=== PATIENT | male | born 1940 | race Caucasian/White ===

== ENCOUNTER → 2017-05-22 10:05 | Outpatient (CLI) | payer MEDICARE, BC, SELFPAY ==
[2017-05-22 12:41] LABS: Absolute Lymphocyte Count 1.85 X10^3/ul (0.83-4.51); Absolute Neutrophil Count 4.3 X10^3/uL (2.0-7.7); Basophil# 0.02 X10^3/uL; Basophil% 0.3 % (0-1); Eosinophil# 0.21 X10^3/uL; Hematocrit 43.4 % (40-54); Hemoglobin 14.6 g/dl (13.0-16.5); Lymphocyte # 1.85 X10^3/ul (4.0); Lymphocyte % 26.8 % (19-41); Mean Corp Hgb Conc 33.6 g/gl (32-36); Mean Corpuscular Hgb 31.5 pg (27.0-32.0); Mean Corpuscular Volume 93.7 fL (80-94); Mean Platelet Vol. 9.3 fl (6.2-12.0); Monocyte# 0.51 X10^3/uL; Monocyte% 7.4 % (0-10); Neutrophil % 62.4 % (47-70); Platelet Count 301 K/mm3 (150-450); RBC Distribution Width CV 12.3 % (11.6-14.6); RBC Distribution Width SD 41.4 fl (35.1-43.9); Red Blood Count 4.63 M/mm3 (4.6-6.2); White Blood Count 6.9 K/mm3 (4.4-11.0)
[2017-05-22 12:59] LABS: POSITIVE DIFFERENTIAL NO
[2017-05-22 13:00] LABS: POSITIVE COUNT NO; POSITIVE MORPHOLOGY NO
[2017-05-22 13:04] LABS: BUN 17 mg/dL (7-18); Creatinine, Serum 1.23 mg/dL (0.70-1.30); Glucose 94 mg/dL (74-106)
[2017-05-22 13:05] LABS: ALB/GLOB Ratio 1.1 RATIO (0.9-2.4); AST(SGOT) 17 U/L (15-37); Alanine Aminotransfer ALT/SGPT 25 U/L (16-61); Albumin, Serum 3.8 g/dL (3.2-5.0); Alkaline Phosphatase 95 U/L (45-117); Anion Gap 7 (5-15); BUN/Creat Ratio 13.8 RATIO (10-20); Chloride 105 mmol/L (98-107); EST Glomerular Filtration Rate 61 mL/min (>60); Est Glom Filt Rate - Afr Amer 73 mL/min (>60); Globulin 3.4 g/dL (2.2-4.2); Potassium 4.2 mmol/L (3.5-5.1); Protein, Total 7.2 g/dL (6.4-8.2); Sodium Level 142 mmol/L (136-145); Thyroid Stim Hormone (TSH) 1.87 uIU/mL (0.358-3.74)
[2017-05-22 13:09] LABS: Vitamin D,25 Hydroxy 17.3 ng/mL (29.95-100.01)
== END ==
PROVIDERS: Family Provider Family Medicine Geriatric Medicine; PCP Family Medicine Geriatric Medicine; Visit Provider Family Medicine Geriatric Medicine
DX: E55.9 Vitamin D deficiency, unspecified (principal); I10 Essential (primary) hypertension
CPT/HCPCS: 36415; 80053; 82306; 84443; 85025

== ENCOUNTER → 2017-10-07 11:15 | Outpatient (CLI) | payer MEDICARE, BC, SELFPAY ==
[2017-10-07 12:52] LABS: Absolute Lymphocyte Count 2.01 X10^3/ul (0.83-4.51); Basophil# 0.02 X10^3/uL; Basophil% 0.3 % (0-1); Eosinophil# 0.15 X10^3/uL; Eosinophils% 1.9 % (0-5); Hematocrit 44.3 % (40-54); Hemoglobin 14.7 g/dl (13.0-16.5); Lymphocyte # 2.01 X10^3/ul (4.0); Lymphocyte % 25.5 % (19-41); Mean Corp Hgb Conc 33.2 g/gl (32-36); Mean Corpuscular Hgb 31.2 pg (27.0-32.0); Mean Corpuscular Volume 94.1 fL (80-94); Mean Platelet Vol. 9.2 fl (6.2-12.0); Monocyte# 0.66 X10^3/uL; Monocyte% 8.4 % (0-10); Neutrophil # 5.03 X10^3/uL (2.7-7.7); Neutrophil % 63.8 % (47-70); Platelet Count 289 K/mm3 (150-450); RBC Distribution Width CV 12.3 % (11.6-14.6); RBC Distribution Width SD 41.8 fl (35.1-43.9); Red Blood Count 4.71 M/mm3 (4.6-6.2); White Blood Count 7.9 K/mm3 (4.4-11.0)
[2017-10-07 12:53] LABS: POSITIVE COUNT NO; POSITIVE DIFFERENTIAL NO; POSITIVE MORPHOLOGY NO
[2017-10-07 13:09] LABS: ALB/GLOB Ratio 1.2 RATIO (0.9-2.4); AST(SGOT) 20 U/L (15-37); Alanine Aminotransfer ALT/SGPT 27 U/L (16-61); Albumin, Serum 3.9 g/dL (3.2-5.0); Alkaline Phosphatase 80 U/L (45-117); Anion Gap 5 (5-15); BUN 20 mg/dL (7-18); BUN/Creat Ratio 14.8 RATIO (10-20); Calcium,Total 9.2 mg/dL (8.5-10.1); Chloride 108 mmol/L (98-107); Creatinine, Serum 1.35 mg/dL (0.70-1.30); EST Glomerular Filtration Rate 54 mL/min (>60); Est Glom Filt Rate - Afr Amer 66 mL/min (>60); Globulin 3.2 g/dL (2.2-4.2); Glucose 92 mg/dL (74-106); Potassium 4.2 mmol/L (3.5-5.1); Protein, Total 7.1 g/dL (6.4-8.2); Sodium Level 142 mmol/L (136-145); Thyroid Stim Hormone (TSH) 1.83 uIU/mL (0.358-3.74)
== END ==
PROVIDERS: Family Provider Family Medicine Geriatric Medicine; PCP Family Medicine Geriatric Medicine; Visit Provider Family Medicine Geriatric Medicine
DX: I10 Essential (primary) hypertension (principal)
CPT/HCPCS: 36415; 80053; 84443; 85025

== ENCOUNTER → 2017-11-28 13:13 | Outpatient (CLI) | payer MEDICARE, BC, SELFPAY ==
--- NOTE | 2017-11-27 | LES_PTH ---
PATIENT: RBIONNA IBARRA LOC: [facility] U#:[id number] AGE/SX: 84/M ROOM: RE11/28/[address]: Dr. Edwardo Sow MD : 1940 BED: DIS: SPEC #: [id number] RECD: 11/28/17 14:38 STATUS: DAX AMBER #: [id number] EDE: 11/27/17 00:[address]: Edwardo Sow DEPT: SURGICAL PATHOLOGY RECD BY: Roman Loya ENTERED: 11/28/17 14:39 SP TYPE: Lesion OTHR DR: Dr. Wiliam Guerrero MD Tissues: Scapula, NOS Procedures: Surgery Specimen Level IV HEADER OPERATION: Excision skin lesion left scapula PRE-OP DIAGNOSIS: Uncertain neoplasm trunk TISSUE SUBMITTED: Left scapular tissue, transverse ellipse, suture at lateral aspect of ellipse MICROSCOPIC DIAGNOSIS Left scapular lesion, excisional biopsy: Basal cell carcinoma, completely excised. SJ:luiz 11/29/17 MICROSCOPIC DESCRIPTION Slides are reviewed. GROSS DESCRIPTION Received in fixative is one container labeled with the patient's name and designated left scapula excisional biopsy. The specimen consists of a faye-white skin ellipse measuring 3.5 x 1.5 cm and up to 1 cm in thickness. The specimen is oriented by a suture at lateral aspect of the ellipse. The specimen is inked as follows: lateral tip ? yellow, medial tip ? green. The lateral tip is assigned as 3 o?clock position, the peripheral margin 12 o?clock edge is inked black and opposite lateral margin occupying 6 o?clock inked blue. The specimen is serially sectioned and submitted entirely in three cassettes as follows: 1 ? lateral and medial tip, 2 ? medial half of the specimen, 3 ? lateral half of the specimen. / SALMA:luiz 11/28/17 TC:0 CPT: 17667
== END ==
PROVIDERS: Family Provider Family Medicine Geriatric Medicine; PCP Family Medicine Geriatric Medicine; Visit Provider Surgery
DX: D48.7 Neoplasm of uncertain behavior of other specified sites (principal)
CPT/HCPCS: 88305

== ENCOUNTER → 2018-01-07 14:56 | Outpatient (CLI) | payer MEDICARE, BC, SELFPAY ==
[2018-01-07 17:19] LABS: Absolute Lymphocyte Count 1.94 X10^3/ul (0.83-4.51); Absolute Neutrophil Count 4.2 X10^3/uL (2.0-7.7); Basophil# 0.03 X10^3/uL; Basophil% 0.4 % (0-1); Eosinophil# 0.16 X10^3/uL; Eosinophils% 2.3 % (0-5); Hematocrit 44.3 % (40-54); Hemoglobin 14.9 g/dl (13.0-16.5); Lymphocyte # 1.94 X10^3/ul (4.0); Lymphocyte % 28.4 % (19-41); Mean Corp Hgb Conc 33.6 g/gl (32-36); Mean Corpuscular Hgb 31.4 pg (27.0-32.0); Mean Corpuscular Volume 93.3 fL (80-94); Mean Platelet Vol. 9.6 fl (6.2-12.0); Monocyte# 0.47 X10^3/uL; Monocyte% 6.9 % (0-10); Neutrophil # 4.22 X10^3/uL (2.7-7.7); Platelet Count 295 K/mm3 (150-450); RBC Distribution Width CV 12.4 % (11.6-14.6); RBC Distribution Width SD 41.5 fl (35.1-43.9); Red Blood Count 4.75 M/mm3 (4.6-6.2); White Blood Count 6.8 K/mm3 (4.4-11.0)
[2018-01-07 17:30] LABS: POSITIVE COUNT NO; POSITIVE DIFFERENTIAL NO; POSITIVE MORPHOLOGY NO; Vitamin B12 358 pg/mL (211-911)
[2018-01-07 17:37] LABS: Anion Gap 8 (5-15); BUN 17 mg/dL (7-18); BUN/Creat Ratio 14.5 RATIO (10-20); Calcium,Total 9.3 mg/dL (8.5-10.1); Chloride 109 mmol/L (98-107); Creatinine, Serum 1.17 mg/dL (0.70-1.30); EST Glomerular Filtration Rate 64 mL/min (>60); Est Glom Filt Rate - Afr Amer 78 mL/min (>60); Glucose 93 mg/dL (74-106); Potassium 4.5 mmol/L (3.5-5.1); Sodium Level 143 mmol/L (136-145)
[2018-01-10 04:13] LABS: Rapid Plasmin Reagin (RPR) NONREACTIVE (NONREACTIVE)
== END ==
PROVIDERS: Family Provider Family Medicine Geriatric Medicine; PCP Family Medicine Geriatric Medicine; Visit Provider Family Medicine Geriatric Medicine
DX: F06.8 Other specified mental disorders due to known physiological condition (principal); G30.9 Alzheimer's disease, unspecified; R53.83 Other fatigue
CPT/HCPCS: 36415; 80048; 82607; 82746; 84443; 85025; 86592

== ENCOUNTER → 2018-05-26 09:33 | Outpatient (CLI) | payer MEDICARE, BC, SELFPAY ==
[2018-05-26 12:53] LABS: Absolute Lymphocyte Count 1.77 X10^3/ul (0.83-4.51); Absolute Neutrophil Count 4.4 X10^3/uL (2.0-7.7); Basophil# 0.02 X10^3/uL; Basophil% 0.3 % (0-1); Eosinophil# 0.27 X10^3/uL; Eosinophils% 3.8 % (0-5); Hematocrit 44.9 % (40-54); Hemoglobin 14.3 g/dl (13.0-16.5); Lymphocyte # 1.77 X10^3/ul (4.0); Lymphocyte % 24.9 % (19-41); Mean Corp Hgb Conc 31.8 g/gl (32-36); Mean Corpuscular Hgb 30.8 pg (27.0-32.0); Mean Corpuscular Volume 96.8 fL (80-94); Mean Platelet Vol. 9.2 fl (6.2-12.0); Monocyte# 0.65 X10^3/uL; Monocyte% 9.1 % (0-10); Neutrophil # 4.39 X10^3/uL (2.7-7.7); Neutrophil % 61.8 % (47-70); Platelet Count 290 K/mm3 (150-450); RBC Distribution Width CV 12.8 % (11.6-14.6); RBC Distribution Width SD 44.5 fl (35.1-43.9); Red Blood Count 4.64 M/mm3 (4.6-6.2); White Blood Count 7.1 K/mm3 (4.4-11.0)
[2018-05-26 12:54] LABS: POSITIVE COUNT NO; POSITIVE DIFFERENTIAL NO; POSITIVE MORPHOLOGY NO
[2018-05-26 13:10] LABS: Vitamin D,25 Hydroxy 14.9 ng/mL (29.95-100.01)
[2018-05-26 13:20] LABS: ALB/GLOB Ratio 1.2 RATIO (0.9-2.4); AST(SGOT) 16 U/L (15-37); Alanine Aminotransfer ALT/SGPT 24 U/L (16-61); Albumin, Serum 3.8 g/dL (3.2-5.0); Alkaline Phosphatase 85 U/L (45-117); Anion Gap 9 (5-15); BUN 23 mg/dL (7-18); BUN/Creat Ratio 16.5 RATIO (10-20); Calcium,Total 8.7 mg/dL (8.5-10.1); Chloride 105 mmol/L (98-107); Creatinine, Serum 1.39 mg/dL (0.70-1.30); EST Glomerular Filtration Rate 52 mL/min (>60); Est Glom Filt Rate - Afr Amer 63 mL/min (>60); Globulin 3.1 g/dL (2.2-4.2); Glucose 87 mg/dL (74-106); Potassium 4.2 mmol/L (3.5-5.1); Protein, Total 6.9 g/dL (6.4-8.2); Sodium Level 142 mmol/L (136-145); Thyroid Stim Hormone (TSH) 1.95 uIU/mL (0.358-3.74)
== END ==
PROVIDERS: Family Provider Family Medicine Geriatric Medicine; PCP Family Medicine Geriatric Medicine; Visit Provider Family Medicine Geriatric Medicine
DX: E55.9 Vitamin D deficiency, unspecified (principal); I10 Essential (primary) hypertension
CPT/HCPCS: 36415; 80053; 82306; 84443; 85025

== ENCOUNTER 2018-07-09 05:53 | Day surgery (SDC) | payer MEDICARE, BC, SELFPAY ==
--- NOTE | 2018-06-12 09:55 | HP_ITS ---
Intake Intake Visit Reasons: Suspicious spot on back Chief Complaint: skin lesion nose and back Hay Sorter Required: No Is patient in pain?: No Allergies No Known Allergies Allergy (Verified 06/12/18 08:49) Medications Aspirin [Aspirin, Baby] 81 mg PO DAILY@0800 06/27/14 [History Confirmed 12/05/17] Atorvastatin Calcium [Lipitor] 10 mg PO DAILY 06/27/14 [History Confirmed 12/05/17] Tamsulosin HCl [Flomax] 0.4 mg PO BID 06/27/14 [History Confirmed 12/05/17] Dutasteride [Avodart] 0.5 mg PO DAILY 01/19/15 [History Confirmed 12/05/17] diltiazem CD 120 mg capsule,extended release 24 hr 120 mg PO QDAY #90 cap 03/06/18 [Rx] PFSH Medical History HLD (hyperlipidemia) (Chronic) Ventricular premature depolarization (Chronic) Sleep apnea (Chronic) Bradycardia (Chronic) Paroxysmal atrial fibrillation (Chronic) Atherosclerosis of aorta (Chronic) Paroxysmal atrial tachycardia (Chronic) Skin lesion of face (Chronic) Overactive bladder (Chronic) Pre-syncope (Chronic) HTN (hypertension) (Chronic) Afib (Chronic) Basal cell carcinoma of scapular region (Acute) BPH (benign prostatic hyperplasia) (Chronic) Erectile dysfunction (Chronic) PVC's (premature ventricular contractions) (Chronic) Paroxysmal ventricular tachycardia (Chronic) Skin cancer, basal cell (Chronic) Syncope and collapse (Chronic) Surgical History History of hemorrhoidectomy (Chronic) History of tonsillectomy (Chronic) Family History Father AAA (abdominal aortic aneurysm) BPH (benign prostatic hyperplasia) Social History Smoking Status: Former smoker alcohol intake: never substance use type: does not use Exam HENMT Other: Patient has very deep creases the nasolabial fold. Left nasal ala there is a 9 mm long deep ulcerated lesion. Chest Other: Low mid back there is a slightly irregular irritated 8 mm diameter light brown faye keratotic lesion Assessment & Plan Problems 1. Skin lesion of face L98.9 Plan 77-year-old gentleman. Findings would be very much consistent with an ulcerative basal cell skin cancer of the left nasal ala. He has a very deep nasolabial fold. I believe that a flap rotation would alter that significantly and be more cosmetically noticeable. I therefore proposed for him a wide excision of the lesion with anticipated full-thickness skin grafting harvesting from his left post auricular area and I have described the technique, benefit, risks, alternatives. No guarantees of success have been offered. The patient is not interested in having Mohs or other surgery performed if possible. Regarding the low back lesion I propose that this is like an irritated seborrheic keratosis. Amputation cautery ablation would relieve those symptoms. I anticipate being able to perform the above procedure under local anesthetic. I will utilize an operating room to help facilitate. He has had an opportunity to ask and have questions answered. We will schedule and proceed at his discretion. We will have him hold his aspirin therapy. CC: Dr. Cesar Sow M.D., F.A.C.S. Coding Level of Care Code Off vis,est,level 2 Diagnoses Skin lesion of face L98.9
[2018-07-09 06:13] VITALS: BP 142/67; PULSE 56; RESP 17; TEMP 36.6; O2SAT 95; BMI 29.9
--- NOTE | 2018-07-09 06:59 | DCINST_ITS ---
Discharge Diet: Light diet - advance as tolerated - if you have questions about your diet instructions, please talk to you doctor. Discharge Activity: May Not Drive - for 1 week or while taking narcotic pain medicine. May shower in (days): 7 Lifting Restrictions: 10 pounds Call your doctor if your incision/area has: Continuous Slow Oozing, Sudden Increased Bleeding, Increased Pain/ Swelling, Increased Redness, Foul Smelling Discharge Call your doctor if you observe: Fever of 101 or Higher Suture Line Care: Avoid Pulling/Pushing, Avoid Pinching/Bending Additional Dressing/Incision Instructions:: You may remove the neck dressing in 3 days. You may cleanse that site with a Q-tip and peroxide. You may reapply a Band-Aid or gauze dressing as needed. The nasal dressing will remain intact until your office follow-up Additional Instructions: Please call to make an office appointment for July 15 Allergies/Adverse Reactions: Allergies No Known Allergies Allergy (Verified 06/12/18 08:49) Medications to take at Discharge Aspirin [Aspirin, Baby] 81 mg PO DAILY@0800 06/27/14 Atorvastatin Calcium [Lipitor] 10 mg PO DAILY 06/27/14 Tamsulosin HCl [Flomax] 0.4 mg PO BID 06/27/14 Dutasteride [Avodart] 0.5 mg PO DAILY 01/19/15 diltiazem CD 120 mg capsule,extended release 24 hr 120 mg PO QDAY #90 cap 03/06/18 Finasteride 5 mg PO DAILY 07/09/18 Memantine HCl 5 mg PO DAILY 07/09/18 Paroxetine HCl [Paxil] 10 mg PO DAILY 07/09/18 Rivastigmine 4.6 mg Patch [Exelon Patch 4.6mg] 1 each TRANSDERM. Q24H 07/09/18 Primary Care Physician: Wiliam Guerrero Chi, MD [Primary Care Provider] - Test Results: Test results from this visit will be discussed in further detail at your follow- up appointment, if applicable. Please Follow Up With: Edwardo Sow MD - [phone] When: Call to make an appointment to be seen in about 6 days.
--- NOTE | 2018-07-09 07:15 | LES_PTH ---
PATIENT: BRIONNA IBARRA [place] [facility] [id number] AGE/SX: 77/M ROOM: RE07/09/[address]: Dr. Edwardo Sow MD : 1940 BED: DIS: 07/09/2018 SPEC #: [id number] RECD: 07/09/18 11:10 STATUS: DAX AMBER #: [id number] EDE: 07/09/18 07:[address]: Edwardo Sow DEPT: SURGICAL PATHOLOGY RECD BY: Kelton Xiao ENTERED: 07/09/18 13:28 SP TYPE: Lesion OTHR DR: Dr. Wiliam Guerrero MD Tissues: Skin of face, NOS Procedures: Surgery Specimen Level IV HEADER OPERATION: Wide excision left nasal skin lesion with full thickness PRE-OP DIAGNOSIS: Skin lesion nose and low mid back TISSUE SUBMITTED: Left nasal ala skin lesion - suture medial MICROSCOPIC DIAGNOSIS Skin lesion of left nasal region, biopsy: Basal cell carcinoma, superficial, multifocal, completely excised. Solar elastosis. SALMA:luiz 07/10/18 COMMENT The lesion measures 6.8 mm in greatest dimension. Reference is made to the patient's previous nasal tip shave biopsy from 06/08/03 ([id number]) in which basal cell carcinoma was identified. Case has been reviewed in consultation with Dr. Pearl who concurs with the above diagnosis. IDC:SJ MICROSCOPIC DESCRIPTION Slides are reviewed. GROSS DESCRIPTION Received in fixative is one container labeled with the patient's name and designated left nasal ala skin lesion, suture medial. The specimen consists of a piece of faye-white skin ellipse measuring 1.2 x 1.5 x 0.3 cm. A suture is noted identifying the medial position. The specimen is inked as follows: superior margin - black, inferior margin - blue, lateral margin - green and medial margin - yellow. The specimen is serially sectioned and submitted entirely in two cassettes as follows: 1 - superior and medial margins, 2 - rest of the specimen. / SALMA:luiz 07/09/18 TC:0 CPT: 22645
[2018-07-09] MEDS: Bupivacaine Mpf 0.5% 30 ML VIAL (07:30)
[2018-07-09] MEDS: Mupirocin Ointment 22gm Tube 1 APPLIC (08:47)
--- NOTE | 2018-07-09 08:47 | OP.PCM_ITS ---
Problem List (1) Skin lesion Status: Acute Report of Operation Date of Procedure: 07/09/18 Pre-Operative Diagnosis: Suspected basal cell carcinoma left nasa ala. 8 mm irritated keratosis low mid back Post-Operative Diagnosis: Same Surgery/Procedure Performed:: Wide excision left nasal skin cancer with full- thickness skin grafting donor site left superior lateral neck. Ablation irritated keratosis low mid back Description of Surgical Findings:: Timeout and informed consent was obtained. 77-year-old gent was taken the operating room. His face and neck was sterilely prepped and draped. 1% lidocaine mixed 50-50 with 0.5% Marcaine was used as a local anesthetic. A 29 cc was used. Local was instilled at the nasal lesion. Preoperatively that lesion measured at least 8 mm in length. I did a 15 by approximately 9 mm elliptical excision around the area. I felt that I had good clearance. Sharp dissection carried right down to the nasal cartilage. Deep hemostasis was obtained with several stitches of interrupted 5-0 chromic. Sterile gauze was applied. The graft was then carefully protected with saline gauze. I then instilled local in the left mid lateral neck and did a elliptical excision of a 2.2 x 1.1 cm ellipse of skin. That was repaired with a subdermal layer of multiple interrupted 4-0 Monocryl. And then a running simple and mattress suture of 5-0 nylon. Telfa OpSite dressing was applied. The full-thickness graft and was then aggressively defatted. It was shaped to form. It was then sutured in place at the nose with multiple interrupted 6-0 nylon sutures. I then put 4 corner sutures of 3-0 silk. Placed Adaptic and a moistened cotton ball and secured that with the bolster sutures. The specimen had a suture placed in the medial aspect of the resection and was submitted in formalin. The back wound was approximately an 8 mm diameter irritated keratosis. It was prepped with Betadine local was instilled and then electrocautery was used to ablate that lesion. There was no specimen. Topical antibiotic ointment Telfa OpSite dressing was applied to the low back. Counts were correct. The patient had the procedure well. He was taken back to his room in satisfactory condition without apparent complication. Specimens include the left nasal skin lesion suspected basal cell cancer. Drains none. Blood loss minimal. Edwardo Sow M.D., F.A.C.S.
[2018-07-09 09:22] VITALS: BP 142/67; BP 146/60; PULSE 57; RESP 57; TEMP 37.1; O2SAT 95
== END 2018-07-09 09:24 | disposition home or self-care (01) ==
LOC: SDC 05:54 → AC 05:55
PROVIDERS: Family Provider Family Medicine Geriatric Medicine; PCP Family Medicine Geriatric Medicine; Referring Provider Surgery; Visit Provider Surgery
PROC: (CPT 11644; principal; 2018-07-09 07:00)
DX: C44.311 Basal cell carcinoma of skin of nose (principal); L57.0 Actinic keratosis; E78.5 Hyperlipidemia, unspecified; I48.0 Paroxysmal atrial fibrillation; I10 Essential (primary) hypertension; N40.0 Benign prostatic hyperplasia without lower urinary tract symptoms; Z87.891 Personal history of nicotine dependence; Z79.82 Long term (current) use of aspirin; Z79.899 Other long term (current) drug therapy
CPT/HCPCS: 11644; 15760; 17000; 88305

== ENCOUNTER → 2018-10-08 11:03 | Outpatient (CLI) | payer MEDICARE, BC, SELFPAY ==
[2018-08-07 08:38] VITALS: BMI 30.7
[2018-10-08 15:35] LABS: Absolute Lymphocyte Count 1.87 X10^3/uL (0.83-4.51); Absolute Neutrophil Count 4.4 X10^3/uL (2.0-7.7); Basophil# 0.05 X10^3/uL; Basophil% 0.7 % (0-1); Eosinophil# 0.16 X10^3/uL; Eosinophils% 2.3 % (0-5); Hematocrit 42.1 % (40-54); Hemoglobin 13.9 g/dL (13.0-16.5); Lymphocyte # 1.87 X10^3/ul (4.0); Lymphocyte % 26.9 % (19-41); Mean Corpuscular Hgb 31.4 pg (27.0-32.0); Mean Corpuscular Volume 95.2 fL (80-94); Monocyte# 0.48 X10^3/uL; Monocyte% 6.9 % (0-10); NRBC Flagged by Analyzer 0 % (0-5); Neutrophil # 4.37 X10^3/uL (2.7-7.7); Neutrophil % 62.9 % (47-70); Platelet Count 262 K/mm3 (150-450); RBC Distribution Width CV 12.1 % (11.6-14.6); RBC Distribution Width SD 42.4 fl (35.1-43.9); Red Blood Count 4.42 M/mm3 (4.6-6.2)
[2018-10-08 15:51] LABS: ALB/GLOB Ratio 1.3 RATIO (0.9-2.4); AST(SGOT) 13 U/L (15-37); Alanine Aminotransfer ALT/SGPT 21 U/L (16-61); Albumin, Serum 3.7 g/dL (3.2-5.0); Alkaline Phosphatase 76 U/L (45-117); Anion Gap 8 (5-15); BUN 16 mg/dL (7-18); BUN/Creat Ratio 11.9 RATIO (10-20); Calcium,Total 8.9 mg/dL (8.5-10.1); Chloride 106 mmol/L (98-107); Creatinine, Serum 1.35 mg/dL (0.70-1.30); EST Glomerular Filtration Rate 54 mL/min (>60); Est Glom Filt Rate - Afr Amer 66 mL/min (>60); Globulin 2.8 g/dL (2.2-4.2); Glucose 88 mg/dL (74-106); Potassium 4.8 mmol/L (3.5-5.1); Protein, Total 6.5 g/dL (6.4-8.2); Sodium Level 144 mmol/L (136-145); Thyroid Stim Hormone (TSH) 1.77 uIU/mL (0.358-3.74); Vitamin D,25 Hydroxy 27.8 ng/mL (29.95-100.01)
== END ==
PROVIDERS: Family Provider Family Medicine Geriatric Medicine; PCP Family Medicine Geriatric Medicine; Visit Provider Family Medicine Geriatric Medicine
DX: E55.9 Vitamin D deficiency, unspecified (principal); I10 Essential (primary) hypertension
CPT/HCPCS: 36415; 80053; 82306; 84443; 85025

== ENCOUNTER → 2019-01-06 11:46 | Outpatient (CLI) | payer MEDICARE, BC, SELFPAY ==
[2018-08-07 08:38] VITALS: BMI 30.7
[2019-01-06 12:55] LABS: Absolute Lymphocyte Count 1.83 X10^3/uL (0.83-4.51); Basophil# 0.04 X10^3/uL; Basophil% 0.6 % (0-1); Eosinophil# 0.17 X10^3/uL; Eosinophils% 2.6 % (0-5); Hemoglobin 14.1 g/dL (13.0-16.5); Lymphocyte # 1.83 X10^3/ul (4.0); Lymphocyte % 27.9 % (19-41); Mean Corpuscular Hgb 30.9 pg (27.0-32.0); Mean Corpuscular Volume 96.5 fL (80-94); Mean Platelet Vol. 9.3 fl (6.2-12.0); Monocyte# 0.53 X10^3/uL; Monocyte% 8.1 % (0-10); NRBC Flagged by Analyzer 0 % (0-5); Neutrophil # 3.98 X10^3/uL (2.7-7.7); Neutrophil % 60.5 % (47-70); Platelet Count 261 K/mm3 (150-450); RBC Distribution Width CV 11.7 % (11.6-14.6); RBC Distribution Width SD 41.1 fl (35.1-43.9); Red Blood Count 4.56 M/mm3 (4.6-6.2); White Blood Count 6.6 K/mm3 (4.4-11.0)
[2019-01-06 13:56] LABS: ALB/GLOB Ratio 1.3 RATIO (0.9-2.4); AST(SGOT) 17 U/L (15-37); Alanine Aminotransfer ALT/SGPT 25 U/L (16-61); Albumin, Serum 3.8 g/dL (3.2-5.0); Alkaline Phosphatase 72 U/L (45-117); Anion Gap 6 (5-15); BUN 22 mg/dL (7-18); BUN/Creat Ratio 15.8 RATIO (10-20); Calcium,Total 9.1 mg/dL (8.5-10.1); Chloride 107 mmol/L (98-107); Creatinine, Serum 1.39 mg/dL (0.70-1.30); EST Glomerular Filtration Rate 52 mL/min (>60); Est Glom Filt Rate - Afr Amer 63 mL/min (>60); Globulin 2.9 g/dL (2.2-4.2); Glucose 97 mg/dL (74-106); Potassium 4.5 mmol/L (3.5-5.1); Protein, Total 6.7 g/dL (6.4-8.2); Sodium Level 141 mmol/L (136-145)
== END ==
PROVIDERS: Family Provider Family Medicine Geriatric Medicine; PCP Family Medicine Geriatric Medicine; Visit Provider Family Medicine Geriatric Medicine
DX: E55.9 Vitamin D deficiency, unspecified (principal); I10 Essential (primary) hypertension
CPT/HCPCS: 36415; 80053; 82306; 84443; 85025

== ENCOUNTER → 2019-04-08 14:29 | Outpatient (CLI) | payer MEDICARE, BC, SELFPAY ==
[2018-08-07 08:38] VITALS: BMI 30.7
[2019-04-08 17:58] LABS: Absolute Lymphocyte Count 1.46 X10^3/uL (0.83-4.51); Absolute Neutrophil Count 5.1 X10^3/uL (2.0-7.7); Basophil# 0.03 X10^3/uL; Basophil% 0.4 % (0-1); Eosinophils% 1.4 % (0-5); Hematocrit 44.7 % (40-54); Hemoglobin 14.5 g/dL (13.0-16.5); Lymphocyte # 1.46 X10^3/ul (4.0); Lymphocyte % 20.6 % (19-41); Mean Corp Hgb Conc 32.4 g/dL (32-36); Mean Corpuscular Hgb 31.4 pg (27.0-32.0); Mean Corpuscular Volume 96.8 fL (80-94); Mean Platelet Vol. 9.6 fl (6.2-12.0); Monocyte# 0.37 X10^3/uL; Monocyte% 5.2 % (0-10); NRBC Flagged by Analyzer 0 % (0-5); Neutrophil # 5.11 X10^3/uL (2.7-7.7); Neutrophil % 72.1 % (47-70); Platelet Count 262 K/mm3 (150-450); RBC Distribution Width CV 12.1 % (11.6-14.6); RBC Distribution Width SD 43.1 fl (35.1-43.9); Red Blood Count 4.62 M/mm3 (4.6-6.2); White Blood Count 7.1 K/mm3 (4.4-11.0)
[2019-04-08 18:18] LABS: ALB/GLOB Ratio 1.4 RATIO (0.9-2.4); AST(SGOT) 14 U/L (15-37); Alanine Aminotransfer ALT/SGPT 24 U/L (16-61); Alkaline Phosphatase 69 U/L (45-117); Anion Gap 5 (5-15); BUN 22 mg/dL (7-18); BUN/Creat Ratio 14.8 RATIO (10-20); Calcium,Total 9.4 mg/dL (8.5-10.1); Chloride 108 mmol/L (98-107); Creatinine, Serum 1.49 mg/dL (0.70-1.30); EST Glomerular Filtration Rate 48 mL/min (>60); Est Glom Filt Rate - Afr Amer 58 mL/min (>60); Globulin 2.8 g/dL (2.2-4.2); Glucose 114 mg/dL (74-106); Potassium 4.1 mmol/L (3.5-5.1); Protein, Total 6.8 g/dL (6.4-8.2); Sodium Level 143 mmol/L (136-145); Thyroid Stim Hormone (TSH) 1.52 uIU/mL (0.358-3.74)
[2019-04-08 18:19] LABS: Vitamin D,25 Hydroxy 32.2 ng/mL (29.95-100.01)
== END ==
PROVIDERS: PCP Family Medicine Geriatric Medicine; Visit Provider Family Medicine Geriatric Medicine
DX: E55.9 Vitamin D deficiency, unspecified (principal); I10 Essential (primary) hypertension
CPT/HCPCS: 36415; 80053; 82306; 84443; 85025

== ENCOUNTER → 2019-05-02 | Outpatient (CLI) | payer MEDICARE, BC, SELFPAY ==
--- NOTE | 2019-05-02 08:30 | LES_PTH ---
PATIENT: BRIONNA IBARRA LOC: [facility] U#:[id number] AGE/SX: 78/M ROOM: RE05/02/[address]: Dr. Edwardo Sow MD : 1940 BED: DIS: 05/02/2019 SPEC #: [id number] RECD: 05/04/19 07:16 STATUS: DAX REKristine #: [id number] EDE: 05/02/19 08:[address]: Edwardo Sow DEPT: SURGICAL PATHOLOGY RECD BY: Kelton Xiao ENTERED: 05/04/19 09:18 SP TYPE: Lesion OTHR DR: Dr. Wiliam Guerrero MD Tissues: Skin of neck, NOS Procedures: Surgery Specimen Level IV HEADER OPERATION: Excision left neck lesion PRE-OP DIAGNOSIS: Neck neoplasm TISSUE SUBMITTED: Left neck tissue MICROSCOPIC DIAGNOSIS Skin lesion of left neck, biopsy: Basal cell carcinoma, superficial, completely excised. Solar elastosis. See comment. AM:luiz 05/05/19 COMMENT The basal cell carcinoma measures 3 mm in greatest dimension. MICROSCOPIC DESCRIPTION Slides are reviewed. GROSS DESCRIPTION Received in fixative is one container labeled with the patient's name and designated left neck. The specimen consists of an ellipse of light faye excised skin measuring 2.5 x 1 x 0.3 cm. No mass lesion is identified. The specimen is inked, serially sectioned and totally submitted as follows: 1 - tips, 2 & 3 - remainder of the specimen. / AM:luiz 05/04/19 TC:0 CPT: 06064
[2019-05-02 08:31] VITALS: BMI 30.7
== END | disposition home or self-care (01) ==
LOC: LABSPEC 05-04 08:44
PROVIDERS: PCP Family Medicine Geriatric Medicine; Referring Provider Surgery; Visit Provider Surgery
DX: C44.41 Basal cell carcinoma of skin of scalp and neck (principal)
CPT/HCPCS: 88305

== ENCOUNTER → 2019-05-19 15:07 | Outpatient (CLI) | payer MEDICARE, BC, SELFPAY ==
[2019-05-02 08:31] VITALS: BMI 30.7
[2019-05-19 15:36] LABS: Absolute Lymphocyte Count 1.98 X10^3/uL (0.83-4.51); Absolute Neutrophil Count 4.3 X10^3/uL (2.0-7.7); Basophil# 0.04 X10^3/uL; Basophil% 0.6 % (0-1); Eosinophil# 0.17 X10^3/uL; Eosinophils% 2.4 % (0-5); Hematocrit 43.7 % (40-54); Hemoglobin 14.4 g/dL (13.0-16.5); Lymphocyte # 1.98 X10^3/ul (4.0); Mean Corpuscular Hgb 31.3 pg (27.0-32.0); Mean Platelet Vol. 9.1 fl (6.2-12.0); Monocyte# 0.55 X10^3/uL; Monocyte% 7.8 % (0-10); NRBC Flagged by Analyzer 0 % (0-5); Neutrophil % 60.9 % (47-70); Platelet Count 253 K/mm3 (150-450); RBC Distribution Width CV 11.9 % (11.6-14.6); RBC Distribution Width SD 41.1 fl (35.1-43.9); White Blood Count 7.1 K/mm3 (4.4-11.0)
[2019-05-19 16:06] LABS: ALB/GLOB Ratio 1.4 RATIO (0.9-2.4); AST(SGOT) 20 U/L (15-37); Alanine Aminotransfer ALT/SGPT 21 U/L (16-61); Albumin, Serum 4.1 g/dL (3.2-5.0); Alkaline Phosphatase 65 U/L (45-117); Anion Gap 5 (5-15); BUN 19 mg/dL (7-18); BUN/Creat Ratio 12.8 RATIO (10-20); Chloride 106 mmol/L (98-107); Creatinine, Serum 1.49 mg/dL (0.70-1.30); EST Glomerular Filtration Rate 48 mL/min (>60); Est Glom Filt Rate - Afr Amer 58 mL/min (>60); Globulin 2.9 g/dL (2.2-4.2); Glucose 91 mg/dL (74-106); Potassium 4.4 mmol/L (3.5-5.1); Sodium Level 141 mmol/L (136-145); Thyroid Stim Hormone (TSH) 1.37 uIU/mL (0.358-3.74)
== END ==
PROVIDERS: PCP Family Medicine Geriatric Medicine; Visit Provider Family Medicine Geriatric Medicine
DX: G93.9 Disorder of brain, unspecified (principal); I10 Essential (primary) hypertension
CPT/HCPCS: 36415; 80053; 84443; 85025

== ENCOUNTER → 2019-05-25 14:58 | Outpatient (CLI) | payer MEDICARE, BC, SELFPAY ==
[2019-05-02 08:31] VITALS: BMI 30.7
--- NOTE | 2019-05-25 15:01 | CT_ITS ---
STUDY: CT BRAIN WITHOUT CONTRAST REASON FOR EXAM: Male, 78 years old. ENCEPHALOPATHY RADIATION DOSAGE (If Supplied By Facility): CTDIvol = ( 44.99 ) mGy, DLP = ( 762.36 ) mGycm TECHNIQUE: Transaxial CT imaging of the brain was performed without administration of intravenous contrast material. Coronal and sagittal reconstructions were performed. Individualized dose optimization techniques were used for this CT. COMPARISON: 03/05/2017. FINDINGS: Normal soft tissue structures. Normal calvarium. Moderate cerebral atrophy, central and cortical causing increased dilatation of the lateral ventricles. Normal cerebral aqueduct and fourth ventricle. Increase hypodensities in the white matter of both cerebral hemispheres are progression chronic white matter ischemic changes. No midline shift and no mass effects. Normal basal ganglia and thalami. Normal brainstem. Normal cerebellum. There is no intracranial hemorrhage. There are no findings of an acute ischemic infarction. Pronounced mucosal thickening with sclerotic wall thickening in the right maxillary sinus. This was present previously and is consistent with chronic sinusitis. CT/Brain/Head without Contrast IMPRESSION: 1. No CT evidence of intracranial bleeding, acute ischemic infarct or acute intracranial abnormality. 2. Progression of chronic white matter ischemic changes in both cerebral hemispheres when compared to 03/05/2017. 3. 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 4. Chronic right mastoid sinusitis is unchanged. Electronically Signed: Seferino Lopes MD at 11:35 EDT , Service support ,
== END ==
PROVIDERS: PCP Family Medicine Geriatric Medicine; Referring Provider Family Medicine Geriatric Medicine; Visit Provider Family Medicine Geriatric Medicine
DX: G93.40 Encephalopathy, unspecified (principal)
CPT/HCPCS: 70450

== ENCOUNTER 2019-06-19 10:00 | Outpatient (RCR) | payer MEDICARE, BC, SELFPAY ==
[2019-05-02 08:31] VITALS: BMI 30.7
--- NOTE | 2019-05-27 11:49 | HP.PTEVAL ---
Patient's Visit Information BRIONNA IBARRA is a 78 year old M referred to Physical Therapy by Wiliam Guerrero MD with a diagnosis of Falls. Date of Evaluation: 05/27/19 Physical Therapist: Lee Marquez, DPT, OCS, CSCS - Visit Plan Frequency: 2x /Week Duration: 4-6 Weeks Plan: 2x/week for 4-6 weeks for: LE strength progressing to HEP. HS and gastroc stretching. VOR progression for balance. weight shifting and vestibular balance ex for HEP progression. Gait training. - Subjective Subjective: Having trouble waking. Stiff knees. Knees ache most of time 09/24. Has fallen 4x in last year with legs giving out. No spinning. No neuropathy. No cane or walker. Got a stick but doesn't want to use it. x rays showed Knee OA. No regular exercise adn sits on butt alot. Admittedly lazy and does not do much. Worse pain and falling since been inactive. Sleeps well. Spends day on couch watching TV. Does basic ADLs himself. careful in the shower. Hobbies: motorcycle, Did so in December. Not employed. Retired in end 2017. - Pain knee Pain Intensity (Out of 10): 5 Pain Intensity Range: 0, 7 - Objective Short steps in gait but I on frim flat surface with fair balance. Trasnfers without UE bed adn chair I. Steps are reciprocal with 1-2 railings but avoids weight shift FW coming down and in gait pattern. coordination to reciprocal toe adn heel tap is fast. sensation to gross light touch WNL in LE. Strength ankles 4-, knees 4+ adn hips 4/5 without pain today. reflexes 2/3 patella and achilles. HS tight at -30 90/90 test and gastrocs tight at 0 DF with knees straight. LE AROM WFL and UE AROM WFL also although elevation is about 130 before VC. UE strength is 4-/5. VOR walking is very challenging for patient, better seated but eyes stillc ome off target. Pt is sitting too much with very little activity and is having effect on his balance. - Balance Scores Functional Gait Assessment Score: 22 % Disability: 26.6700 CATSIB Score (Max score 120 seconds): 94 - Goals Goal 1:: FGA to diminish fall risk. Goal Time Frame: 4-6 Weeks Goal 2:: I appropriate HEP to minimize future problems Goal Time Frame: 4-6 Weeks Goal 3:: Pt feel knee pain 75% improved to 0-2/10 at all times. Goal Time Frame: 4-6 Weeks Goal 4:: LEFS <33% disability. Goal Time Frame: 4-6 Weeks - Rehabilitation Potential Physical Therapy Diagnosis: h/o falls /imbalance Rehabilitation Potential: Good - Anticipated Interventions Patient/Client Instruction: Educate patient on: Condition, Plan of Care For the Purpose of:: To decrease pain, To increase tolerance to activity/condition/position, To improve ability of physical actions for home/community/work/leisure, To improve gait and locomotor functions Therapeutic Exercise to Include: Strength training, Balance training, Flexibilty training, Gait and locomotor training, Active ROM For the Purpose of:: To decrease pain, To improve muscle performance and motor function, To improve ability of physical actions for home/community/work/leisure, To improve gait and locomotor functions, To improve balance, To improve safety with gait Thank you for the opportunity to evaluate your patient. For Medicare and Medicare HMO plans, please review the plan of care and approve it. It will need to be FAXED BACK to us at [phone] for Medicare purposes. For Medicare only, by signing this I certify the plan of care. Please let me know if there are questions or concerns regarding this plan of care. Physician Signature: Date:
--- NOTE | 2019-06-19 12:32 | HP.PTREVAL ---
Wiliam Guerrero MD, It has been my pleasure to treat BRIONNA IBARRA over the last 7 visits for Falls. Please see the progress note below for an update on the physical therapy plan of care! Subjective: says seems stronger. Balance better as she says he has not fallen. Not using stick at home, doesn't want to use walker. He says he still needs more therapy. He is not sure Objective/Function: Strength LE 4/5 but obvious weakness and lack of forward weight shift willingness on steps as he does these leaning backwards and holding on with UE descending. FGA is not improved adn confidence with ambulation is poor. Overall some subjective improvements and LEFS improvements but long way to go on balance for safety. Needs to use AD and emphasized this to patient. Goals appropriate with new POC and fair prognosis Plan Plan: 2x/week for 4 weeks for. 1. verbally ensure HEP at home and use of AD. 2. Focus clinic time on functional gait and weight shifting ex with ehad movement and functional challenges(turning, speed, bending, steps, step over). Emphasis of treatment should be walking /gait training and lots of it with vC and step length. Goals Goal 1:: 24/30 FGA to diminish fall risk. Goal Time Frame: 4-6 Weeks Goal Progress: Not Progressing,a pprop. Goal 2:: I appropriate HEP to minimize future problems Goal Time Frame: 4-6 Weeks Goal Progress: Goal Met Goal 3:: Pt feel knee pain 75% improved to 0-2/10 at all times. Goal Time Frame: 4-6 Weeks Goal Progress: slow progress, approp Goal 4:: LEFS <33% disability. Goal Time Frame: 4-6 Weeks Goal Progress: slow Goal 5:: TUG<12 seconds to show improved balance and moility. Goal Time Frame: 2-4 Weeks Goal Progress: NEW GOAL Anticipated Interventions Patient/Client Instruction: Educate patient on: Condition, Plan of Care For the Purpose of:: To decrease pain, To increase tolerance to activity/condition/position, To improve ability of physical actions for home/community/work/leisure, To improve gait and locomotor functions Therapeutic Exercise to Include: Strength training, Balance training, Flexibilty training, Gait and locomotor training, Active ROM For the Purpose of:: To decrease pain, To improve muscle performance and motor function, To improve ability of physical actions for home/community/work/leisure, To improve gait and locomotor functions, To improve balance, To improve safety with gait Please do not hesitate to contact me at [phone] by phone or if you have questions or concerns regarding this new plan of care! Sincerely, Lee Marquez, DPT, OCS, CSCS
--- NOTE | 2019-08-11 14:51 | HP.PT.NRP ---
BRIONNA IBARRA was seen in my office for initial evaluation on 05/27/19. The following Plan of Care was established for this patient: Initial Frequency: 2x /Week Initial Duration: 4-6 Weeks Patient/Client Instruction: Educate patient on: Condition, Plan of Care For the Purpose of:: To decrease pain, To increase tolerance to activity/condition/position, To improve ability of physical actions for home/community/work/leisure, To improve gait and locomotor functions Therapeutic Exercise to Include: Strength training, Balance training, Flexibilty training, Gait and locomotor training, Active ROM For the Purpose of:: To decrease pain, To improve muscle performance and motor function, To improve ability of physical actions for home/community/work/leisure, To improve gait and locomotor functions, To improve balance, To improve safety with gait This patient was last seen in our office 06/19/19. Pertinent comments regarding their Physical therapy will appear below: Pt seen 7 visits of POC and was about 20% improved. We were to cotninue for 4 more weeks. At this point, it has been nearly two months adn I will discontinue due to nonattendance. At this point I will be discontinuing this patient from physical therapy. I would be happy to see this patient again in the future if found appropriate by the physician. Thank you! Lee Marquez, DPT, OCS, CSCS
== END 2019-06-19 19:00 | disposition home or self-care (01) ==
LOC: PT 10:00
PROVIDERS: PCP Family Medicine Geriatric Medicine; Visit Provider Family Medicine Geriatric Medicine
DX: R47.1 Dysarthria and anarthria (principal); G30.9 Alzheimer's disease, unspecified; W19.XXXD Unspecified fall, subsequent encounter
CPT/HCPCS: 97110; 97162; 97164

== ENCOUNTER 2019-07-28 19:04 | Emergency (ER) | payer MEDICARE, BC, SELFPAY ==
[2019-05-02 08:31] VITALS: BMI 30.7
[2019-07-28 19:08] VITALS: BP 176/91; PULSE 66; RESP 16; TEMP 37.1; O2SAT 92; BMI 29.7
[2019-07-28 19:11] VITALS: O2SAT 96
--- NOTE | 2019-07-28 19:27 | CT_ITS ---
STUDY: CT BRAIN WITHOUT CONTRAST REASON FOR EXAM: Male, 78 years old. Fall. Abrasions over the left head and face. RADIATION DOSAGE (If Supplied By Facility): CTDIvol = ( 44.99 ) mGy, DLP = ( 762.36 ) mGycm TECHNIQUE: Transaxial CT imaging of the brain was performed without administration of intravenous contrast material. Individualized dose optimization techniques were used for this CT. COMPARISON: May 25, 2019. FINDINGS: Normal soft tissue structures. Normal calvarium. There is mild cerebral atrophy with widening of the extra-axial spaces and ventricular dilatation. There are areas of decreased attenuation within the white matter tracts of the supratentorial brain, consistent with microvascular disease changes. Normal basal ganglia and thalami. Normal brainstem. Normal cerebellum. There is no intracranial hemorrhage. There are no findings of an acute ischemic infarction. There is mucoperiosteal reaction again seen in the right maxillary sinus CT/Brain/Head without Contrast IMPRESSION: No acute intracranial or calvarial abnormality or major interval change. Electronically Signed: Nikunj Tavares DO at 20:33 EDT Tel [phone], Service support ,
--- NOTE | 2019-07-28 19:29 | CT_ITS ---
STUDY: CT FACIAL BONES WITHOUT CONTRAST REASON FOR EXAM: Male, 78 years old. Wall. Abrasions to the left face. RADIATION DOSAGE (If Supplied By Facility): CTDIvol = ( 29.38 ) mGy, DLP = ( 547.46 ) mGycm TECHNIQUE: The patient was scanned in a multi detector CT scanner. Sagittal and coronal images were reconstructed. Individualized dose optimization techniques were used for this CT. COMPARISON: CT of the head, July 28, 2019. CT of the head, May 25, 2019. FINDINGS: There is swelling and areas of air within the soft tissues of the left upper lip. There is minimal stranding of the subcutaneous fat of the left maxillary region. The soft tissues are otherwise. Normal orbital marks and orbital contents. There is a small drusen in the right optical nerves are unchanged from previous studies. Normal nasal bones and anterior nasal spine. Normal facial bones. There is no demonstrated fracture. There is mucoperiosteal reaction seen in both maxillary sinuses, right greater than left. CT/Sinus/Facial Bone IMPRESSION: 1. No evidence of facial bone fracture. 2. Sinusitis. 3. Soft tissue injury to the left face and upper lip. Electronically Signed: Nikunj Tavares DO at 20:37 EDT Tel [phone], Service support ,
--- NOTE | 2019-07-28 19:31 | ED.VIS.GEN ---
History of Present Illness Chief Complaint: Fall Informant: Patient Onset: Today Current Severity: Mild Maximum Severity: Mild Narrative: Patient presents after trip and fall on the sidewalk. He landed face first. He is a laceration to the left upper lip and multiple abrasions to the left side of his face. He denies neck pain. He denies any extremity pain. He was able to ambulate following his fall. He does have a history of paroxysmal A. fib but is not currently on anticoagulants. He is unsure of his last tetanus update. - Past Medical History (1) Essential (primary) hypertension Status: Chronic (2) HLD (hyperlipidemia) Status: Chronic (3) Paroxysmal atrial fibrillation Status: Chronic Past Medical History - Allergies and Home Meds Allergies/Adverse Reactions: Allergies No Known Allergies Allergy (Verified 07/28/19 19:07) Primary Care Physician: Wiliam Guerrero Chi, MD [Primary Care Provider] - Prior records reviewed: Yes Surgical History: tonsillectomy - hemmorrhoid, - Lives: Spouse/ Significant Other Smoking Status: Former smoker - Family History Maternal Family History: Family History (Last Reviewed 05/02/19 @ 08:30 by Comfort Nieto) Father AAA (abdominal aortic aneurysm) BPH (benign prostatic hyperplasia) Family History: Reports: - - neg Paternal Family History: Family History (Last Reviewed 05/02/19 @ 08:30 by Comfort Nieto) Father AAA (abdominal aortic aneurysm) BPH (benign prostatic hyperplasia) Family History: Reports: - Review of Systems General: Denies: Chills, Fever Eyes: Denies: Visual changes - bilaterally ENT: Reports: - - Teeth feel stable. Denies: Bilateral ear pain Cardiovascular: Denies: Chest pain Respiratory: Denies: Dyspnea, Cough Gastrointestinal: Denies: Abdominal pain, Nausea, Vomiting, Diarrhea Genitourinary: Denies: Dysuria Musculoskeletal: Denies: Neck pain, Back pain, Extremity Pain Skin: Reports: Abrasions. Denies: Rash Neurological: Denies: Headache Physical Exam Vital Signs/Narrative: Vital Signs Temp Pulse Resp BP Pulse Ox 07/28/19 19:11 96 07/28/19 19:08 98.7 F 66 16 176/91 H 92 Inital Vital Signs reviewed: Yes General: Well nourished, Well developed Head: - - 2 cm laceration of the left upper lip. Laceration does not cross the vermilion border. Eyes: Perrl, EOMI ENT: Moist mucous membranes, - - Teeth are stable. Laceration as above. Neck: Supple, - - No C-spine tenderness. Cardiovascular: Regular rate, Regular rhythm Respiratory: No distress, CTA bilaterally Abdomen: Soft, Nontender Extremities: Nontender Skin: - - Superficial abrasions to the left forehead and left maxilla. Lip laceration is noted. Neurological: Alert, Oriented x3, Normal Strength, Normal Sensation Psychological: Normal affect Diagnostic/Tx/Re-eval Impressions Brain CT 07/28/19 19:27 IMPRESSION: No acute intracranial or calvarial abnormality or major interval change. Electronically Signed: Nikunj Tavares DO at 20:33 EDT Tel [phone], Service support , Facial/Sinus 07/28/19 19:29 IMPRESSION: 1. No evidence of facial bone fracture. 2. Sinusitis. 3. Soft tissue injury to the left face and upper lip. Electronically Signed: Nikunj Tavares DO at 20:37 EDT Tel [phone], Service support , 07/28/19 19:27 CT Head [Brain/Head without Contrast] [CT] Stat 07/28/19 19:29 CT Facial [Sinus/Facial Bone] [CT] Stat - Medical Decision Making Patient declined anything for pain while here. Left lip laceration was repaired after instilling 2 cc 1% lidocaine. 5 simple interval sutures of 4-0 Vicryl were placed. Patient will be covered with a 5-day course of Pen-Vee K to help prevent infection. He was instructed to would be sure to rinse his mouth after he eats to keep the area clean. Tetanus update was provided. Procedures - Lacerations No standard instances Length: 0.79 in Depth: Sub Q Shape: Linear Laceration repair: Lidocaine, Local Number of Sutures/Martha: 5 Suture Information: Vicryl, 4-0 ED Disposition - Plan for ED Patient: Disposition: Home or Assisted Living Diagnosis: Fall, Head contusion, Lip laceration Instructions: ED Laceration Mouth, ED Head Injury Adult Prescriptions: Penicillin V Potassium 500 mg PO 4X/DAY #20 tab Transmission Status: Pending to [id number] Referrals: Wiliam Guerrero Chi, MD [Primary Care Provider] - 1-2 Weeks
[2019-07-28] MEDS: Diphth,Pertuss(Acell),Tet Vac 0.5 ML Vial IM (19:59)
[2019-07-28 20:57] VITALS: BP 178/88; PULSE 80; RESP 18; O2SAT 99
== END 2019-07-28 20:57 | disposition home or self-care (01) ==
PROVIDERS: Emergency Provider Emergency Medicine; PCP Family Medicine Geriatric Medicine
DX: S01.511A Laceration without foreign body of lip, initial encounter (principal); S00.83XA Contusion of other part of head, initial encounter; W01.0XXA Fall on same level from slipping, tripping and stumbling without subsequent striking against object, initial encounter; Y93.9 Activity, unspecified; Y92.480 Sidewalk as the place of occurrence of the external cause; I10 Essential (primary) hypertension; I48.0 Paroxysmal atrial fibrillation; E78.5 Hyperlipidemia, unspecified; Z87.891 Personal history of nicotine dependence
CPT/HCPCS: 12011; 70450; 70486; 90715; 99284

== ENCOUNTER → 2019-07-30 15:30 | Outpatient (CLI) | payer MEDICARE, BC, SELFPAY ==
[2019-07-28 19:08] VITALS: BMI 29.7
[2019-07-30 16:29] LABS: Absolute Lymphocyte Count 1.42 X10^3/uL (0.83-4.51); Absolute Neutrophil Count 5.9 X10^3/uL (2.0-7.7); Basophil# 0.04 X10^3/uL; Basophil% 0.5 % (0-1); Eosinophil# 0.15 X10^3/uL; Eosinophils% 1.9 % (0-5); Hemoglobin 13.5 g/dL (13.0-16.5); Lymphocyte # 1.42 X10^3/ul (4.0); Lymphocyte % 17.8 % (19-41); Mean Corp Hgb Conc 32.9 g/dL (32-36); Mean Corpuscular Hgb 31.8 pg (27.0-32.0); Mean Corpuscular Volume 96.5 fL (80-94); Mean Platelet Vol. 8.8 fl (6.2-12.0); Monocyte# 0.49 X10^3/uL; Monocyte% 6.1 % (0-10); NRBC Flagged by Analyzer 0 % (0-5); Neutrophil # 5.88 X10^3/uL (2.7-7.7); Neutrophil % 73.6 % (47-70); Platelet Count 213 K/mm3 (150-450); RBC Distribution Width CV 12.1 % (11.6-14.6); RBC Distribution Width SD 42.5 fl (35.1-43.9); Red Blood Count 4.25 M/mm3 (4.6-6.2)
[2019-07-30 16:46] LABS: ALB/GLOB Ratio 1.2 RATIO (0.9-2.4); AST(SGOT) 17 U/L (15-37); Alanine Aminotransfer ALT/SGPT 25 U/L (16-61); Albumin, Serum 3.4 g/dL (3.2-5.0); Alkaline Phosphatase 69 U/L (45-117); Anion Gap 4 (5-15); BUN 22 mg/dL (7-18); BUN/Creat Ratio 19.3 RATIO (10-20); Calcium,Total 8.9 mg/dL (8.5-10.1); Chloride 109 mmol/L (98-107); Creatinine, Serum 1.14 mg/dL (0.70-1.30); EST Glomerular Filtration Rate 66 mL/min (>60); Est Glom Filt Rate - Afr Amer 80 mL/min (>60); Globulin 2.9 g/dL (2.2-4.2); Glucose 123 mg/dL (74-106); Potassium 4.1 mmol/L (3.5-5.1); Protein, Total 6.3 g/dL (6.4-8.2); Sodium Level 142 mmol/L (136-145)
[2019-07-30 17:25] LABS: Vitamin D,25 Hydroxy 29.3 ng/mL
== END ==
PROVIDERS: PCP Family Medicine Geriatric Medicine; Visit Provider Family Medicine Geriatric Medicine
DX: I10 Essential (primary) hypertension (principal); E55.9 Vitamin D deficiency, unspecified
CPT/HCPCS: 36415; 80053; 82306; 84443; 85025

== ENCOUNTER → 2019-09-03 05:35 | Outpatient (REF) | payer MEDICARE, BC, SELFPAY ==
[2019-08-11 09:40] VITALS: BMI 29.5
[2019-09-03 07:45] LABS: Erythrocyte Sedimentation Rate 2 mm/hr (0-20)
[2019-09-03 07:59] LABS: CRP < 2.90 mg/L (0.0-3.0)
[2019-09-03 09:28] LABS: Vitamin B12 284 pg/mL (211-911)
[2019-09-08 04:50] LABS: Arsenic 7245 6 ug/L (2-23); Lead, Blood 2 ug/dL (0-4); Mercury, Blood 85324 0 ug/L (0.0-14.9)
== END ==
LOC: OLS.DANBUR 05:35
PROVIDERS: PCP Family Medicine Geriatric Medicine
DX: N40.0 Benign prostatic hyperplasia without lower urinary tract symptoms (principal); I10 Essential (primary) hypertension; R41.3 Other amnesia; E53.8 Deficiency of other specified B group vitamins
CPT/HCPCS: 36415; 82175; 82607; 83655; 83825; 85652; 86140

== ENCOUNTER → 2019-09-09 15:52 | Outpatient (CLI) | payer MEDICARE, BC, SELFPAY ==
[2019-08-11 09:40] VITALS: BMI 29.5
--- NOTE | 2019-09-09 16:00 | MRI_ITS ---
STUDY: MRI BRAIN WITH AND WITHOUT CONTRAST REASON FOR EXAM: Male, 79 years old. memory loss x 2 years TECHNIQUE: Standardized multiplanar fat and water weighted pulse sequences were obtained. IV 19cc dotatem was administered for the contrast portion of the examination. COMPARISON: CT of the head dated July 28, 2019 and June 27, 2014 FINDINGS: There is disproportionate ventricular enlargement with prominence of the anterior horns and temporal tips of the bilateral lateral ventricles. There is confluent periventricular hyperintensity cloaking the lateral ventricles. There is thinning with bowing of the corpus callosum. There is moderate enlargement of the third ventricle. The findings are suggestive of normal pressure hydrocephalus (NPH). Findings are most prominent when compared with the prior CT examination in 2014. There are multiple white matter hyperintensities, distributed throughout the deep white matter tracts of the cerebral hemispheres, consistent with moderate chronic white matter ischemic changes. Normal bilateral basal ganglia. Normal thalami. There is no extra-axial fluid accumulation. Normal flow voids within the major intracranial circulation suggesting patency by spin echo criteria. Normal venous enhancement. There is no enhancing intra-axial or extra-axial abnormality. Normal sella turcica, pituitary gland, infundibular stalk, optic chiasm and hypothalamus. Normal tectal plate and pineal gland. Normal midbrain, mike and medulla. Normal cerebellum. Normal basal cisterns. MRI/Brain W/WO Contrast IMPRESSION: Findings consistent with NPH in the appropriate clinical setting. Electronically Signed: Sue Obrien MD at 13:55 EDT Tel , Service support ,
== END ==
PROVIDERS: PCP Family Medicine Geriatric Medicine; Referring Provider Psychiatry & Neurology Neurology; Visit Provider Psychiatry & Neurology Neurology
DX: R41.3 Other amnesia (principal)
CPT/HCPCS: 70553; A9575

== ENCOUNTER → 2019-11-20 05:00 | Outpatient (REF) | payer MEDICARE, BC, SELFPAY ==
[2019-08-11 09:40] VITALS: BMI 29.5
[2019-11-20 06:28] LABS: Hematocrit 40.6 % (40-54); Hemoglobin 12.6 g/dL (13.0-16.5); Mean Corpuscular Hgb 30.4 pg (27.0-32.0); Mean Corpuscular Volume 98.1 fL (80-94); Mean Platelet Vol. 8.7 fl (6.2-12.0); Platelet Count 266 K/mm3 (150-450); RBC Distribution Width CV 12.5 % (11.6-14.6); RBC Distribution Width SD 45.4 fl (35.1-43.9); Red Blood Count 4.14 M/mm3 (4.6-6.2); White Blood Count 6.5 K/mm3 (4.4-11.0)
[2019-11-20 06:49] LABS: Anion Gap 5 (5-15); BUN 18 mg/dL (7-18); BUN/Creat Ratio 15.1 RATIO (10-20); Calcium,Total 8.6 mg/dL (8.5-10.1); Chloride 108 mmol/L (98-107); Creatinine, Serum 1.19 mg/dL (0.70-1.30); EST Glomerular Filtration Rate 63 mL/min (>60); Est Glom Filt Rate - Afr Amer 76 mL/min (>60); Glucose 94 mg/dL (74-106); Sodium Level 142 mmol/L (136-145)
== END ==
LOC: OLS.DANBUR 05:00
PROVIDERS: Referring Provider Family Medicine; Visit Provider Family Medicine
DX: I10 Essential (primary) hypertension (principal); E55.9 Vitamin D deficiency, unspecified; E78.5 Hyperlipidemia, unspecified; N40.0 Benign prostatic hyperplasia without lower urinary tract symptoms
CPT/HCPCS: 36415; 80048; 85027

== ENCOUNTER → 2020-05-12 19:00 | Outpatient (REF) | payer MEDICARE, BC, SELFPAY ==
[2019-08-11 09:40] VITALS: BMI 29.5
[2020-05-13 07:56] LABS: Color, Urine Yellow (Yellow); Glucose, Dipstick Normal (Normal); Ketone-Dipstick 5 mg/dl (Negative); Leukocyte Esterase-Dipstick Negative /ul (Negative); Nitrite-Dipstick Negative (Negative); Occult Blood-Urine 25 /ul (Negative); Protein-Dipstick Negative (Negative); Urine Bilirubin Dipstick Negative (Negative); Urine Clarity Sl. Cloudy (Clear); Urine Urobilinogen Normal (Normal)
== END ==
LOC: OLS.DANBUR 19:00
PROVIDERS: Referring Provider Family Medicine; Visit Provider Family Medicine
DX: N39.0 Urinary tract infection, site not specified (principal)
CPT/HCPCS: 81002; 87086